=== PATIENT | male | born 1975 ===

== ENCOUNTER 2018-03-05 10:10 | Emergency (ER) | payer BC ==
[2018-03-05 10:18] VITALS: BP 142/87; PULSE 84; RESP 18; TEMP 98; O2SAT 97
--- NOTE | 2018-03-05 11:40 | C.PDOC ---
History Of Present Illness 42-year-old male presents to the ER complaining of left lateral foot pain for 4 days. He states there is a bruise there, but he cannot recall any specific injury. He does admit he was doing physical activity all weekend so injury is possible. Patient denies any open wounds, fever, redness, sensory changes. Time Seen by Provider: 03/05/18 10:21 Chief Complaint (Nursing): Lower Extremity Problem/Injury History Per: Patient History/Exam Limitations: no limitations Onset/Duration Of Symptoms: Days Current Symptoms Are (Timing): Still Present Severity: Mild Past Medical History Reviewed: Historical Data, Nursing Documentation, Vital Signs Vital Signs: Last Vital Signs Temp 98 F 03/05/18 10:18 Pulse 84 03/05/18 10:18 Resp 18 03/05/18 10:18 BP 142/87 03/05/18 10:18 Pulse Ox 97 03/05/18 13:17 - Medical History PMH: No Chronic Diseases Surgical History: No Surg Hx Family History: States: No Known Family Hx - Social History Hx Tobacco Use: No Hx Alcohol Use: Yes Hx Substance Use: No - Immunization History Hx Tetanus Toxoid Vaccination: Yes Hx Influenza Vaccination: Yes Hx Pneumococcal Vaccination: No Review Of Systems Constitutional: Negative for: Fever, Chills Respiratory: Negative for: Cough, Shortness of Breath Musculoskeletal: Positive for: Foot Pain Skin: Positive for: Bruising. Negative for: Rash, Lesions Neurological: Negative for: Weakness, Numbness Physical Exam - Physical Exam Appears: Well, Non-toxic, No Acute Distress Skin: Normal Color, Warm, Dry, No Rash Eye(s): bilateral: Normal Inspection Oral Mucosa: Moist Neck: Supple Cardiovascular: Rhythm Regular Respiratory: Normal Breath Sounds, No Rales, No Rhonchi, No Wheezing Extremity: Normal ROM (w/ intact ROM of left toes and ankle), No Calf Tenderness , Capillary Refill (< 2 sec all digits ), Other (Left foot, lateral aspect: 5th MTP joint is mildly TTP, no swelling or erythema, no open wounds, no deformity to toes) Pulses: Left Dorsalis Pedis: Normal, Right Dorsalis Pedis: Normal Neurological/Psych: Oriented x3, Normal Motor, Normal Sensation Gait: Steady ED Course And Treatment O2 Sat by Pulse Oximetry: 97 (RA) Pulse Ox Interpretation: Normal - Other Rad XR L Foot X-Ray: Viewed By Me, Read By Radiologist Interpretation: Accession No. : [id number]. Patient Name / ID : NORRIS TSAI / [id number]. Exam Date : 03/05/2018 10:53:33 ( Approved ). Study Comment : Sex / Age : M / [id number]. Creator : Tacos Martel MD. Dictator : Tacos Martel MD. Physics Department Chair : Tube Rebuilder : Tacos Martel MD. Approver2 : Report Date : 03/05/2018 13:01:21. My Comment : . Date of service: 03/05/2018. PROCEDURE: Left Foot Radiographs. HISTORY: left lateral foot pain r/o fx. COMPARISON: None. FINDINGS: BONES: Normal. No fracture. JOINTS: Normal. SOFT TISSUES: Normal. OTHER FINDINGS: None. IMPRESSION: Normal left foot radiographs. Progress Note: Patient given PO Motrin. X-ray of left foot ordered and reviewed. Reevaluation Time: 11:40 Reassessment Condition: Improved (On reassessment, patient is resting comfortably. Xray neg for acute bony injury. Patient given Rx for Naprosyn and was instructed to follow up with orthpedics/podiatry within 1 week if symptoms persist. He understands he should return to ED if symptoms worsen.) Disposition Counseled Patient/Family Regarding: Diagnosis, Need For Followup, Rx Given - Disposition Referrals: Tyron Kuhn MD [Staff Provider] - [facility]ry [facility] [Outside] Disposition: HOME/ ROUTINE Disposition Time: 11:40 Condition: STABLE Additional Instructions: FOLLOW UP WITH PODIATRY WITHIN 1 WEEK IF SYMPTOMS PERSIST USE PAIN MEDICATION NEEDED RETURN TO ER IF SYMPTOMS WORSEN Prescriptions: Naproxen [Naprosyn] 1 tab PO BID PRN #25 tab PRN Reason: Pain Instructions: Foot Sprain (DC) Forms: [employer] (Romanian), Work Excuse Print Language: UPPER SORBIAN - Clinical Impression Clinical Impression: Sprain of foot, left - Scribe Statement The provider has reviewed the documentation as recorded by the [place] Mandel Provider Attestation: All medical record entries made by the Mckenzie were at my direction and personally dictated by me. I have reviewed the chart and agree that the record accurately reflects my personal performance of the history, physical exam, medical decision making, and the department course for this patient. I have also personally directed, reviewed, and agree with the discharge instructions and disposition.
--- NOTE | 2018-03-05 13:02 | RAD ---
Date of service: 03/05/2018 PROCEDURE: Left Foot Radiographs. HISTORY: left lateral foot pain r/o fx COMPARISON: None. FINDINGS: BONES: Normal. No fracture. JOINTS: Normal. SOFT TISSUES: Normal. OTHER FINDINGS: None. IMPRESSION: Normal left foot radiographs.
== END 2018-03-05 11:51 | disposition home or self-care (01) ==
LOC: C.ER 10:10
DX: S93.602A Unspecified sprain of left foot, initial encounter (principal); X58.XXXA Exposure to other specified factors, initial encounter